=== PATIENT | female | born 1985 | race Caucasian/White ===

== ENCOUNTER 2020-12-06 18:09 | Emergency (ER) | payer OTHER ==
[~2020-12-06 18:09] MED LIST: LODINE400 MG PO; SPIRONOLACTONE25 MG PO
[2020-12-06 19:13] LABS: BASOPHIL 0.4 % (0-2); EOSINOPHIL 0.8 % (0-5); HCT 40.1 % (37.0-47.0); HGB 13.8 g/dl (12.5-16.0); LYMPHOCYTE 24.2 % (15-48); MCH 29.7 pg (25.0-31.0); MCHC 34.4 g/dL (32.0-36.0); MCV 86.4 fL (78.0-100.0); MONOCYTE 9.1 % (0-12); MPV 10.7 fL (6.0-9.5); NEUTROPHIL 65.2 % (41-80); NRBC 0; PLT 264 K/uL (150-400); RBC 4.64 M/uL (4.20-5.40); RDW 12.8 % (11.5-14.0); WBC 9.8 K/uL (4.0-10.5)
[2020-12-06 19:29] LABS: BILIRUBIN - TOTAL 0.2 mg/dL (0.2-1.0); BUN/CREAT RATIO (CALC) 12.9 RATIO; CREATININE 0.7 mg/dL (0.51-0.95); GLOBULIN (CALCULATION) 3.7 g/dL; POTASSIUM 3.6 mmol/L (3.5-5.1); TOTAL PROTEIN 7.7 g/dL (6.4-8.2)
== END 2020-12-07 00:49 | disposition other institution (70) ==
LOC: FER 18:09
PROVIDERS: Emergency Medicine Emergency Medical Services
DX: S13.9XXA Sprain of joints and ligaments of unspecified parts of neck, initial encounter (principal); M54.12 Radiculopathy, cervical region; I10 Essential (primary) hypertension; Z79.899 Other long term (current) drug therapy
CPT/HCPCS: 36415; 70450; 71260; 72125; 72128; 72131; 73080; 80053; 84703; 85025; J1170; J1885; J2405; J3360; Q9967